=== PATIENT | male | born 1980 | race Hispanic/Latino ===

== ENCOUNTER 2020-11-19 19:56 | Emergency (ER) | payer SELFPAY ==
[2020-11-19] MEDS ORDERED: Lidocaine 1% PF 5 ML VIAL ONE (20:18)
[2020-11-19] MEDS ORDERED: Morphine 4 MG/ML VIAL ONE (20:37)
== END 2020-11-19 20:55 | disposition home or self-care (01) ==
LOC: ERS 19:56
DX: L05.01 Pilonidal cyst with abscess (principal)
CPT/HCPCS: 10080; 96372; J2270

== ENCOUNTER 2021-11-20 16:23 | Emergency (ER) | payer SELFPAY ==
[2021-11-20] MEDS ORDERED: Fluorescein Opthalmic Strip ONE (17:44)
[2021-11-20] MEDS ORDERED: Proparacaine 0.5% Opth 15 ML BOT ONE (17:44)
[2021-11-20] MEDS ORDERED: Erythromycin Base 0.5% Oint 1 GM TUBE ONE (18:04)
[2021-11-20] MEDS ORDERED: Boostrix 0.5 ML (Tdap) VIAL ONE (18:08)
== END 2021-11-20 18:27 | disposition home or self-care (01) ==
LOC: ERS 16:23
DX: T15.91XA Foreign body on external eye, part unspecified, right eye, initial encounter (principal)
CPT/HCPCS: 65222; 90471; 90715

== ENCOUNTER 2023-08-20 07:17 | Emergency (ER) | payer SELFPAY ==
[2023-08-20 07:44] LABS: #Monocytes 0.4 thou/uL (0.11-0.59); #Neutrophils 6.9 thou/uL (1.40-6.50); %Basophils 0.1 % (0.0-1.0); %Eosinophils 0.5 % (0.0-10.0); %Lymphocytes 14.6 % (21.0-51.0); %Monocytes 4.4 % (0.0-10.0); %Neutrophils 80.2 % (42.0-75.0); Hematocrit 46.3 % (42.0-52.0); Hemoglobin 15.2 g/dL (14.0-18.0); Mean Corpuscular HGB CONC 32.8 g/dL (32.0-36.0); Mean Corpuscular Volume 85.3 fl (78.0-98.0); Mean Platelet Volume 10.4 fL (7.4-10.4); Platelet Count 213 10x3/uL (130-400); RBC Distribution Width 13.2 % (11.5-14.5); Red Blood Cell (RBC) Count 5.43 mill/uL (4.70-6.10); White Blood Cell (WBC) Count 8.6 10x3/uL (4.8-10.8)
[2023-08-20 08:20] LABS: ALT (SGPT) 28 U/L (8-55); AST (SGOT) 23 U/L (5-34); Albumin 4.6 g/dL (3.5-5.0); Alkaline Phosphatase 61 U/L (40-110); BUN (Urea Nitrogen) 21 mg/dL (8.9-20.6); Bilirubin, Total 0.5 mg/dL (0.2-1.2); Calc. Creatinine Clearance 0 mL/min (70-130); Calcium 9.4 mg/dL (7.8-10.44); Carbon Dioxide 22 mmol/L (22-29); Estimated GFR 83; Glucose 111 mg/dL (70-105); Protein, Total 7.6 g/dL (6.0-8.3)
[2023-08-20 08:38] LABS: Influenza A by NAA Not Detected (NotDetected); Influenza B by NAA Not Detected (NotDetected); SARS-CoV-2 NAA Rapid Test Not Detected (NotDetected)
[2023-08-20 08:40] LABS: Anion Gap 14 mmol/L (10-20); Chloride 107 mmol/L (98-107); Potassium 4.1 mmol/L (3.5-5.1); Sodium 139 mmol/L (136-145)
== END 2023-08-20 09:37 | disposition home or self-care (01) ==
LOC: ERS 07:17
DX: R19.7 Diarrhea, unspecified (principal); F17.210 Nicotine dependence, cigarettes, uncomplicated
CPT/HCPCS: 80053; 83690; 85025; 93005; 96360